=== PATIENT | male | born 1955 | race Caucasian/White ===

== ENCOUNTER 2025-04-16 12:02 | Outpatient (CLI) | payer BC | END 2025-04-16 12:03 | disposition home or self-care (01) | LOC: BICRAD 12:02 | PROVIDERS: ATTEND Nurse Practitioner Family | DX: Z04.3 Encounter for examination and observation following other accident (principal); M16.11 Unilateral primary osteoarthritis, right hip; M47.816 Spondylosis without myelopathy or radiculopathy, lumbar region; W19.XXXA Unspecified fall, initial encounter | CPT/HCPCS: 72100; 72170; 72220 ==